=== PATIENT | female | born 2000 | race Caucasian/White ===

== ENCOUNTER 2021-08-11 13:09 | Emergency (ER) | payer SELFPAY ==
[~2021-08-11] VITALS: Ht 160 cm; Wt 90.7 kg
[2021-08-11] MEDS ORDERED: Veetids 500500 MG PO (14:12)
== END 2021-08-11 14:15 | disposition home or self-care (01) ==
LOC: ER 13:09
DX: J02.9 Acute pharyngitis, unspecified (principal); F17.210 Nicotine dependence, cigarettes, uncomplicated; Z88.2 Allergy status to sulfonamides
CPT/HCPCS: 99283

== ENCOUNTER 2022-02-08 13:22 | Emergency (ER) | payer SELFPAY ==
[~2022-02-08] VITALS: Ht 160 cm; Wt 95.2 kg
[~2022-02-08 13:22] MED LIST: Veetids 500500 MG PO
[2022-02-08] MEDS ORDERED: ONDA4 PO (17:16)
== END 2022-02-08 17:24 | disposition home or self-care (01) ==
LOC: ER 13:22
DX: S06.0X0A Concussion without loss of consciousness, initial encounter (principal); W22.8XXA Striking against or struck by other objects, initial encounter; Z88.2 Allergy status to sulfonamides
CPT/HCPCS: 70450

== ENCOUNTER → 2022-08-13 | Outpatient (CLI) | payer SELFPAY ==
[~2022-08-13] MED LIST changes: +ONDA4 PO
[2022-08-15 13:11] LABS: CHLAMYDIA BY NAA Negative (Negative); GONOCOCCUS BY NAA Negative (Negative); TRICH VAG BY NAA Negative (Negative)
== END | disposition home or self-care (01) ==
LOC: LAB SHORT 13:43
PROVIDERS: Obstetrics & Gynecology
DX: A56.09 Other chlamydial infection of lower genitourinary tract (principal)
CPT/HCPCS: 87491; 87591; 87661

== ENCOUNTER → 2022-10-05 | Outpatient (CLI) | payer OTHER | LOC: LAB 11:36 → LAB SHORT 11:36 | DX: L08.9 Local infection of the skin and subcutaneous tissue, unspecified (principal) | CPT/HCPCS: 87070; 87205 ==

== ENCOUNTER → 2022-12-18 | Outpatient (CLI) | payer OTHER | END | disposition home or self-care (01) | LOC: LAB 11:50 → LAB SHORT 11:50 | DX: R35.0 Frequency of micturition (principal) | CPT/HCPCS: 87086 ==

== ENCOUNTER → 2023-02-27 | Outpatient (CLI) | payer OTHER ==
[~2023-02-27] MED LIST changes: +NAPROXEN250 M1 PO
[2023-02-28 12:08] LABS: Candida species (DNA Probe) Negative (NEGATIVE); G. vaginalis (DNA Probe) Negative (NEGATIVE); T. vaginalis (DNA Probe) Negative (NEGATIVE)
== END | disposition home or self-care (01) ==
LOC: LAB SHORT 14:26 → LAB 14:26
PROVIDERS: Advanced Practice Midwife
DX: N76.0 Acute vaginitis (principal)
CPT/HCPCS: 87480; 87510; 87660

== ENCOUNTER → 2023-03-29 | Outpatient (CLI) | payer OTHER ==
[2023-03-29 15:44] LABS: Source, Urine Clean Catch
[2023-03-29 16:18] LABS: Appearance, Urine Hazy (Clear); Bilirubin, Urine Neg (Neg); Blood, Urine 1+ (Neg); Color, Urine Yellow (P-Yellow); Glucose Qualitative, Urine Neg (Neg); Ketones, Urine Neg (Neg); Leukocyte Esterase, Urine 3+ (Neg); Nitrite, Urine Neg (Neg); Protein, Urine Neg (Neg); Specific Gravity, Urine 1.015 (1.003-1.022); Urobilinogen, Urine NORM (Normal)
[2023-03-29 16:34] LABS: Bacteria Many /hpf; Red Blood Cells, Urine 0-2 /hpf (0-2); White Blood Cells, Urine 50-100 /hpf (0-5)
[2023-03-29 16:35] LABS: Squamous Epithelial Cells Many /hpf (Few)
[2023-03-30 12:58] LABS: Candida species (DNA Probe) Negative (NEGATIVE); G. vaginalis (DNA Probe) Negative (NEGATIVE); T. vaginalis (DNA Probe) Negative (NEGATIVE)
== END | disposition home or self-care (01) ==
LOC: LAB SHORT 15:43 → LAB 15:43
PROVIDERS: Obstetrics & Gynecology
DX: N76.0 Acute vaginitis (principal); Z78.9 Other specified health status
CPT/HCPCS: 81001; 87086; 87480; 87510; 87660

== ENCOUNTER 2023-04-09 12:13 | Day surgery (SDC) | payer OTHER ==
[~2023-04-09] VITALS: Ht 160 cm; Wt 96.6 kg
[2023-04-09] MEDS ORDERED: DULOXETINE HCL60 M1 PO (13:00)
[2023-04-09] MEDS ORDERED: Hydroxyzine HCl25 MG (13:00)
[2023-04-09] MEDS ORDERED: PROVERA (13:01)
--- NOTE | 2023-04-09 14:12 | NUR ---
04/09/23 1412 Glenna Lockett ABDOMEN PREPPED BY TOSHIA WITH CHLORPREP SERINA AREA AND SURROUNDING AREA PREPPED BY ORSC,AMADOR
[2023-04-09 15:33] VITALS: BP 145/84
--- NOTE | 2023-04-09 16:56 | NUR ---
04/09/23 1652 Juan Craig IV REMOVED INTACT. SITE WNL. PT TOW.
== END 2023-04-09 16:55 | disposition home or self-care (01) ==
LOC: ORSCSDS 12:13
PROVIDERS: Obstetrics & Gynecology
PROC: 0UH97HZ Insertion of Contraceptive Device into Uterus, Via Natural or Artificial Opening (ICD-10-PCS; principal; 2023-04-09 13:30)
PROC: 0WBH4ZX Excision of Retroperitoneum, Percutaneous Endoscopic Approach, Diagnostic (ICD-10-PCS; principal; 2023-04-09 13:30)
DX: N80.319 Endometriosis of the anterior cul-de-sac, unspecified depth (principal); N80.329 Endometriosis of the posterior cul-de-sac, unspecified depth; N92.0 Excessive and frequent menstruation with regular cycle; R10.2 Pelvic and perineal pain; E66.01 Morbid (severe) obesity due to excess calories; Z68.37 Body mass index [BMI] 37.0-37.9, adult; F17.210 Nicotine dependence, cigarettes, uncomplicated; Z79.899 Other long term (current) drug therapy
CPT/HCPCS: 88305; A9270; J0171; J1100; J1885; J2250; J2405; J2704; J2795; J3010; J7120; J7297

== ENCOUNTER → 2024-05-06 | Outpatient (CLI) | payer SELFPAY ==
[~2024-05-06] MED LIST changes: +DULOXETINE HCL60 M1 PO; +Hydroxyzine HCl25 MG; +PROVERA
[2024-05-06 20:40] LABS: Bacterial Vaginosis PCR Negative (NEGATIVE); Candida glabrata-krusei, PCR NOT DETECTED (NOT DETECT)
[2024-05-06 21:31] LABS: Candida Group, PCR DETECTED (NOT DETECT)
[2024-05-08 14:51] LABS: APTIMA MEDIA TYPE Unisex Swab; C. TRACHOMATIS BY TMA Negative (Negative); N. GONORRHOEAE BY TMA Negative (Negative); SPECIMEN SOURCE Cervical
== END ==
LOC: LAB 15:30 → LAB SHORT 15:30
PROVIDERS: Advanced Practice Midwife
DX: Z11.3 Encounter for screening for infections with a predominantly sexual mode of transmission (principal); N76.0 Acute vaginitis
CPT/HCPCS: 87481; 87491; 87591; 87661; 87801

== ENCOUNTER → 2024-05-22 | Outpatient (CLI) | payer SELFPAY ==
[~2024-05-22] MED LIST changes: +CEFP200 PO
[2024-05-22 15:34] LABS: Source, Urine Clean Catch
[2024-05-22 16:30] LABS: Bilirubin, Urine Neg (Neg); Blood, Urine 2+ (Neg); Glucose Qualitative, Urine Neg (Neg); Ketones, Urine Neg (Neg); Leukocyte Esterase, Urine 1+ (Neg); Nitrite, Urine Neg (Neg); Protein, Urine 1+ (Neg); Specific Gravity, Urine 1.015 (1.003-1.022); Urobilinogen, Urine NORM (Normal)
[2024-05-22 16:42] LABS: Appearance, Urine Hazy (Clear); Color, Urine Pale Yellow (P-Yellow)
[2024-05-22 16:43] LABS: Bacteria Many /hpf; Red Blood Cells, Urine 0-2 /hpf (0-2); Squamous Epithelial Cells Mod /hpf (Few)
== END | disposition home or self-care (01) ==
LOC: LAB SHORT 15:29 → LAB 15:29
PROVIDERS: Obstetrics & Gynecology
DX: R30.0 Dysuria (principal)
CPT/HCPCS: 81001; 87086

== ENCOUNTER → 2024-05-25 | Outpatient (CLI) | payer SELFPAY ==
[2024-05-25 19:51] LABS: Bacterial Vaginosis PCR Negative (NEGATIVE); Candida Group, PCR NOT DETECTED (NOT DETECT); Candida glabrata-krusei, PCR NOT DETECTED (NOT DETECT)
== END ==
LOC: LAB 16:23 → LAB SHORT 16:23
PROVIDERS: Obstetrics & Gynecology
DX: N76.0 Acute vaginitis (principal)
CPT/HCPCS: 87481; 87661; 87801

== ENCOUNTER 2024-05-28 03:41 | Emergency (ER) | payer SELFPAY ==
[~2024-05-28] VITALS: Ht 160 cm; Wt 97.1 kg
[~2024-05-28 03:41] MED LIST changes: -CEFP200 PO
[2024-05-28 04:04] VITALS: BP 154/101
[2024-05-28 04:17] LABS: Source, Urine Clean Catch
[2024-05-28 04:27] LABS: BASOPHILS ABSOLUTE AUTO 0.08 K/mm3 (0.00-0.23); BASOPHILS PERCENT AUTO 1 % (0-2); EOSINOPHILS ABSOLUTE AUTO 0.25 K/mm3 (0.00-0.68); EOSINOPHILS PERCENT AUTO 2 % (0-6); Hematocrit 42.9 % (33.0-51.0); Hemoglobin 14.8 g/dL (11.5-16.0); IMMATURE GRAN ABSOLUTE AUTO 0.02 K/mm3 (0.00-0.10); IMMATURE GRAN PERCENT AUTO 0 % (0-1); LYMPHOCYTES ABSOLUTE AUTO 4.53 K/mm3 (0.84-5.20); LYMPHOCYTES PERCENT AUTO 41 % (21-46); MONOCYTES ABSOLUTE AUTO 0.68 K/mm3 (0.16-1.47); MONOCYTES PERCENT AUTO 6 % (4-13); Mean Corpuscular HGB 29.4 pg (26.0-34.0); Mean Corpuscular HGB Conc 34.5 g/dL (31.5-36.5); Mean Corpuscular Volume 85 fL (80-100); Mean Platelet Volume 9.7 fL (9.1-12.4); NEUTROPHILS ABSOLUTE AUTO 5.54 K/mm3 (1.96-9.15); NEUTROPHILS PERCENT AUTO 50 % (41-73); Platelet Count 382 K/mm3 (150-400); RDW Coefficient Variation 12.4 % (11.7-14.2); RDW Standard Deviation 38.4 fL (35.1-46.3); Red Blood Cell Count 5.04 M/mm3 (3.80-5.20)
[2024-05-28 04:31] LABS: Bilirubin, Urine Neg (Neg); Blood, Urine 4+ (Neg); Glucose Qualitative, Urine Neg (Neg); Ketones, Urine Neg (Neg); Leukocyte Esterase, Urine 3+ (Neg); Nitrite, Urine Neg (Neg); Protein, Urine Neg (Neg); Specific Gravity, Urine 1.025 (1.003-1.022); Urobilinogen, Urine NORM (Normal)
[2024-05-28 04:41] LABS: Albumin, Blood 4.1 g/dL (3.4-5.0); Albumin/Globulin Ratio 1.1 (0.8-1.8); Bilirubin, Total 0.4 mg/dL (0.1-1.0); Bun/Creatinine Ratio 21.7 (12.0-20.0); Calcium, Blood 9.4 mg/dL (8.5-10.1); Creatinine, Blood 0.55 mg/dL (0.40-1.00); Globulin, Blood 3.7 g/dL (2.2-4.0); Total Protein, Blood 7.8 g/dL (6.4-8.2)
[2024-05-28 04:47] LABS: Appearance, Urine Cloudy (Clear); Color, Urine Yellow (P-Yellow)
[2024-05-28 04:49] LABS: Bacteria Mod /hpf; Squamous Epithelial Cells Many /hpf (Few)
[2024-05-28] MEDS ORDERED: Cefpodoxime Proxetil 200 MG Tab PO ONE (05:05)
[2024-05-28] MEDS ORDERED: CEFP200 PO (05:10)
== END 2024-05-28 05:19 | disposition home or self-care (01) ==
LOC: ER 03:41
PROVIDERS: Emergency Medicine
DX: N30.90 Cystitis, unspecified without hematuria (principal); R73.9 Hyperglycemia, unspecified; Z68.37 Body mass index [BMI] 37.0-37.9, adult; Z79.899 Other long term (current) drug therapy; Z88.2 Allergy status to sulfonamides
CPT/HCPCS: 80053; 81001; 84703; 85025; 87086; 99283; A9270

== ENCOUNTER → 2024-09-01 | Outpatient (CLI) | payer SELFPAY ==
[~2024-09-01] MED LIST changes: +CEFP200 PO
[2024-09-02 11:47] LABS: Candida Group, PCR NOT DETECTED (NOT DETECT); Candida glabrata-krusei, PCR NOT DETECTED (NOT DETECT)
[2024-09-02 11:57] LABS: Bacterial Vaginosis PCR Positive (NEGATIVE)
== END | disposition home or self-care (01) ==
LOC: LAB SHORT 13:53
PROVIDERS: Advanced Practice Midwife
DX: N76.0 Acute vaginitis (principal)
CPT/HCPCS: 81515